=== PATIENT | male | born 1990 | race African-American/Black ===

== ENCOUNTER 2021-12-28 11:28 | Emergency (ER) | payer MEDICAID ==
[~2021-12-28] VITALS: Ht 172.7 cm; Wt 65.8 kg
[2021-12-28 11:30] VITALS: BP_SYST 132
[2021-12-28] MEDS ORDERED: cefTRIAXone 500 MG in LIDOCAINE 1%, 20 ML MDV 1 ML IM ONE (12:00)
[2021-12-28] MEDS ORDERED: DOXY100T2 PO (12:10)
[2021-12-28 12:50] LABS: BILIRUBIN,URINE NEGATIVE (NEGATIVE); CLARITY/URINE CLEAR (CLEAR); COLOR,URINE YELLOW (YELLOW); GLUCOSE,URINE NEGATIVE (NEGATIVE); KETONES,URINE NEGATIVE (NEGATIVE); LEUKOCYTE ESTERASE ,URINE TRACE (NEGATIVE); NITRITE, URINE NEGATIVE (NEGATIVE); PROTEIN URINE NEGATIVE (NEGATIVE); UROBILINOGEN,URINE 0.2 (0.2-1.0)
[2021-12-28 12:51] LABS: BLOOD, URINE TRACE (NEGATIVE)
[2021-12-28 13:22] VITALS: BP_SYST 113
[2021-12-28 13:27] LABS: BACTERIA,URINE FEW /HPF (None Seen)
== END 2021-12-28 13:23 | disposition home or self-care (01) ==
LOC: SED 11:28
DX: A74.9 Chlamydial infection, unspecified (principal); Z20.2 Contact with and (suspected) exposure to infections with a predominantly sexual mode of transmission
CPT/HCPCS: 36415; 81000; 87491; 96372; 99283; J0696

== ENCOUNTER 2022-06-12 00:12 | Emergency (ER) | payer OTHER, MEDICAID ==
[~2022-06-12] VITALS: Ht 175.3 cm; Wt 65.8 kg
[~2022-06-12 00:12] MED LIST: DOXY100T2 PO
[2022-06-12 00:17] VITALS: BP_SYST 140
[2022-06-12] MEDS: KETOROLAC TROMETHAMINE 60 MG/2 ML VIAL IM ONE (01:37)
[2022-06-12] MEDS ORDERED: NAPR-1172 PO (01:45)
[2022-06-12 02:02] VITALS: BP_SYST 138
== END 2022-06-12 02:02 | disposition home or self-care (01) ==
LOC: SED 00:12
DX: S06.0X0A Concussion without loss of consciousness, initial encounter (principal); Z88.1 Allergy status to other antibiotic agents; Z88.8 Allergy status to other drugs, medicaments and biological substances; J45.909 Unspecified asthma, uncomplicated; Z79.899 Other long term (current) drug therapy; V89.2XXA Person injured in unspecified motor-vehicle accident, traffic, initial encounter; Y93.89 Activity, other specified; Y92.89 Other specified places as the place of occurrence of the external cause; Y99.8 Other external cause status
CPT/HCPCS: 99284; 70450; 76376; 96372; J1885

== ENCOUNTER 2022-12-14 07:34 | Emergency (ER) | payer MEDICAID, OTHER ==
[~2022-12-14] VITALS: Ht 175.3 cm; Wt 65.8 kg
[~2022-12-14 07:34] MED LIST changes: +NAPR-1172 PO
[2022-12-14 07:35] VITALS: BP_SYST 133
--- NOTE | 2022-12-14 07:35 | NUR ---
Placed in room 05 . Placed on cardiac cath lab radiology technologist, blood pressure machine and pulse oximeter. To gown for exam. Side rails up. Report given to DANIELLE FELIZ.
--- NOTE | 2022-12-14 07:45 | NUR ---
ER at bedside examining patient.
--- NOTE | 2022-12-14 07:50 | NUR ---
Pt bib self from home. Chief Complaint Epigastric pain 6/10 FLACC scale. Onset of pain 90 minutes ago. Pt states no morning intake, pt took BC powder with no relief. Pt states regular BM, denies NV, complains of chest pain related to GI upset. No pmhx. allergic to amoxicillin.
[2022-12-14] MEDS ORDERED: MAG HYDROX/AL HYDROX/SIMETH 30 ML, DICYCLOMINE HCL 20 MG, LIDOCAINE VISCOUS 2% 15ML (PO... PO ONE ×3 (08:00)
[2022-12-14] MEDS ORDERED: FAMOTIDINE 20 MG TABLET PO ONE (08:00)
[2022-12-14 08:14] LABS: BASOPHILS % (AUTO) 0.3 % (0.0-2.0); EOSINOPHILS # (AUTO) 0.1 K/uL (0.0-0.4); EOSINOPHILS % (AUTO) 0.7 % (0.0-4.0); HEMATOCRIT 39.4 % (36-54); HEMOGLOBIN 13.7 g/dL (14.0-18.0); LYMPHOCYTES # (AUTO) 1.4 K/uL (1.0-5.5); LYMPHOCYTES % (AUTO) 15.2 % (20.5-51.5); MEAN CORPUSCULAR HEMOGLOBIN 30 pg (27-31); MEAN CORPUSCULAR HGB CONC 35 % (32-36); MEAN CORPUSCULAR VOLUME 86 fL (79.0-98.0); MONOCYTES # (AUTO) 0.8 K/uL (0.0-1.0); MONOCYTES % (AUTO) 8.3 % (1.7-9.3); NEUTROPHILS # (AUTO) 7.1 K/uL (1.8-7.7); NEUTROPHILS % (AUTO) 75.5 % (40.0-70.0); PLATELET COUNT (AUTO) 178 K/uL (130-430); RED BLOOD CELL COUNT(AUTO) 4.56 MIL/uL (4.2-6.2); RED CELL DISTRIBUTION WIDTH 13.5 % (9.0-15.0); WHITE BLOOD COUNT (AUTO) 9.3 K/uL (4.8-10.8)
[2022-12-14 08:29] LABS: CALCIUM 8.8 mg/dL (8.4-11.0); CREATININE 0.92 mg/dL (0.55-1.30)
[2022-12-14 08:33] LABS: ALBUMIN 4.2 g/dL (3.4-4.8); TOTAL BILIRUBIN 0.5 mg/dL (0.0-1.0)
[2022-12-14] MEDS ORDERED: PEPTAB PO (08:52)
[2022-12-14] MEDS ORDERED: PANT20TA2 PO (08:52)
[2022-12-14] MEDS ORDERED: SUCR1TAB2 PO (08:52)
[2022-12-14 09:00] VITALS: BP_SYST 133
--- NOTE | 2022-12-14 09:05 | NUR ---
Patient given written and verbal discharge instructions and verbalizes understanding. ER MD discussed with patient the results and treatment provided. Patient in stable condition. ID arm band removed. Rx of Protonix, Pepto-Bismol and Carafate given. Patient educated on Gastritis management and to follow up with PMD. Opportunity for questions provided and answered. Medication side effect fact sheet provided.
== END 2022-12-14 09:05 | disposition home or self-care (01) ==
LOC: SED 07:34
DX: K29.00 Acute gastritis without bleeding (principal); R10.13 Epigastric pain; J45.909 Unspecified asthma, uncomplicated; Z88.1 Allergy status to other antibiotic agents; Z88.8 Allergy status to other drugs, medicaments and biological substances; Z79.899 Other long term (current) drug therapy
CPT/HCPCS: 99284; 71045; 80053; 83690; 85025; 36415; J2001

== ENCOUNTER 2023-02-08 10:47 | Emergency (ER) | payer MEDICAID ==
[~2023-02-08] VITALS: Ht 175.3 cm; Wt 67.6 kg
[~2023-02-08 10:47] MED LIST changes: +PANT20TA2 PO; +PEPTAB PO; +SUCR1TAB2 PO
[2023-02-08 10:54] VITALS: BP_SYST 125
--- NOTE | 2023-02-08 11:00 | NUR ---
Note chrissie in [facility] - 02/08/23 at 1108 by [id number] Placed in room 8 . Placed on monitoring tech, blood pressure machine and pulse oximeter. To gown for exam. Side rails up. Report given to Jeane.
[2023-02-08 11:13] VITALS: BP_SYST 132
--- NOTE | 2023-02-08 11:20 | NUR ---
ER at bedside examining patient.
--- NOTE | 2023-02-08 11:20 | NUR ---
PT BIB SELF AFTER RECIVING A PHONE CALL FROM A PAST SEXUAL PARTNER STATINH THEY TESTED POSITIVE FOR CHLAMYDIA A WEEK AFTER THEY HAD SEXUAL ENCOUNTER. PT DENIES SOB N/V/D AND ANY URINARY OR BOWEL ISSUES. PT IS AOX4 IN CHAIR 2.
[2023-02-08] MEDS ORDERED: DOXY-244 PO (11:21)
[2023-02-08] MEDS ORDERED: cefTRIAXone 250 MG VIAL IM ONE (11:30)
[2023-02-08] MEDS ORDERED: AZITHROMYCIN 250 MG TABLET PO ONE (11:30)
--- NOTE | 2023-02-08 11:51 | NUR ---
pt medication administered tolerated well.
--- NOTE | 2023-02-08 12:00 | NUR ---
Patient given written and verbal discharge instructions and verbalizes understanding. ER MD discussed with patient the results and treatment provided. Patient in stable condition. ID arm band removed. Rx of DOXYCYCLINE HYCLATE 1OO MG BID given. Opportunity for questions provided and answered. Medication side effect fact sheet provided.
[2023-02-08 12:01] VITALS: BP_SYST 111
== END 2023-02-08 12:00 | disposition home or self-care (01) ==
LOC: SED 10:47
DX: Z20.2 Contact with and (suspected) exposure to infections with a predominantly sexual mode of transmission (principal); R30.0 Dysuria; J45.909 Unspecified asthma, uncomplicated; Z88.1 Allergy status to other antibiotic agents; Z88.8 Allergy status to other drugs, medicaments and biological substances; Z79.899 Other long term (current) drug therapy
CPT/HCPCS: 99283; 96372; J0696; Q0144